=== PATIENT | female | born 1980 | race Two or more races ===

== ENCOUNTER 2019-07-20 01:48 | Emergency (ER) | payer MEDICAID ==
[~2019-07-20] VITALS: Ht 152.4 cm; Wt 79.5 kg
[2019-07-20] MEDS ORDERED: HYDR200T4 PO (02:00)
[2019-07-20] MEDS ORDERED: PredniSONE 20 MG TABLET PO ONE (02:15)
[2019-07-20] MEDS ORDERED: ACETAMINOPHEN 500 MG TABLET PO ONE (02:15)
[2019-07-20] MEDS ORDERED: OxyCODONE HCL 5 MG IR TABLET PO ONE (02:30)
[2019-07-20 02:45] VITALS: BP 135/81
== END 2019-07-20 02:53 | disposition home or self-care (01) ==
LOC: EMS 01:52
DX: M54.12 Radiculopathy, cervical region (principal); F17.210 Nicotine dependence, cigarettes, uncomplicated; Z98.890 Other specified postprocedural states; Z79.899 Other long term (current) drug therapy
CPT/HCPCS: 99284; 99406; J7512

== ENCOUNTER 2024-08-28 08:49 | Emergency (ER) | payer MEDICAID, OTHER ==
[~2024-08-28] VITALS: Ht 152.4 cm; Wt 81.8 kg
[~2024-08-28 08:49] MED LIST: HYDR200T38 PO
[2024-08-28 08:51] VITALS: TEMP 98.7
[2024-08-28 09:30] VITALS: BP 131/90; PULSE 73; RESP 16; O2SAT 99
== END 2024-08-28 09:36 | disposition home or self-care (01) ==
LOC: EMS 08:52
DX: L03.317 Cellulitis of buttock (principal); F17.210 Nicotine dependence, cigarettes, uncomplicated; Z98.890 Other specified postprocedural states
CPT/HCPCS: 99282; Z7502